=== PATIENT | female | born 1975 | race Caucasian/White ===

== ENCOUNTER 2019-01-16 15:10 | Outpatient (CLI) | payer OTHER, SELFPAY ==
[2019-01-16 15:47] LABS: Abs Immature Grans 0.01 k/cumm (0.0-0.09); Absolute Basophil Count 0.02 k/cumm (0.0-0.2); Absolute Eosinophil Count 0.08 k/cumm (0.0-0.7); Absolute Lymphocyte Count 2.25 k/cumm (1.2-3.4); Absolute Monocyte Count 0.46 k/cumm (0.11-0.7); Absolute Neutrophil Count 2.92 k/cumm (1.2-6.7); Basophils % 0.3; Eosinophils % 1.4; HCT 40.6 % (36.0-46.0); HGB 13.8 g/dL (12.0-15.5); Immature Grans % 0.2; Lymphocytes % 39.2; Mean Corpuscular Hemoglobin 30.2 pg (27.0-33.0); Mean Corpuscular Volume 88.8 fL (80-95); Mean Platelet Volume 9.9 fL (8.0-11.0); Neutrophils % 50.9; Platelet Count 217 x1000/uL (130-400); RBC 4.57 m/cumm (4.00-5.20); RBC Distribution Width 12.7 % (11.7-14.6); White Blood Cell Count 5.74 k/cumm (4.4-10.8)
[2019-01-16 17:18] LABS: ALT 15 U/L (12-78); AST 13 U/L (15-37); Albumin 3.9 g/dL (3.4-5.0); Alkaline Phosphatase 53 U/L (46-116); Anion Gap 9.7 mmol/L (3-11); BUN 16 mg/dL (7-18); Bilirubin, Total 0.2 mg/dL (0.2-1.0); C-Reactive Protein 0.07 mg/dL (0.0-0.3); CO2 27.3 mmol/L (21.0-32.0); CREATININE 0.78 mg/dL (0.55-1.02); Calcium 8.8 mg/dL (8.5-10.1); Chloride 102 mmol/L (98-107); Glucose 85 mg/dL (70-100); Potassium 3.5 mmol/L (3.5-5.1); Sodium 139 mmol/L (136-145); Total Protein 6.8 g/dL (6.4-8.2)
[2019-01-16 17:43] LABS: Ferritin 67 ng/mL (8-388)
[2019-01-20 15:22] LABS: 25-Hydroxy D Total 36 ng/mL; 25-Hydroxy D2 <4.0 ng/mL; 25-Hydroxy D3 36 ng/mL
== END 2019-01-16 15:30 ==
PROVIDERS: Visit Provider Internal Medicine Gastroenterology
DX: K51.20 Ulcerative (chronic) proctitis without complications (principal)
CPT/HCPCS: 36415; 80053; 82306; 82728; 85025; 86140

== ENCOUNTER 2019-01-20 12:19 | Outpatient (REF) | payer OTHER, SELFPAY | END 2019-01-20 12:39 | LOC: LBN 12:19 | PROVIDERS: Visit Provider Internal Medicine Gastroenterology | DX: K51.20 Ulcerative (chronic) proctitis without complications (principal) | CPT/HCPCS: 87338 ==

== ENCOUNTER 2019-02-14 08:36 | Outpatient (REF) | payer OTHER, SELFPAY ==
[2019-02-17 20:37] LABS: Calprotectin <15.6 mcg/g
== END 2019-02-14 08:56 ==
LOC: LBN 08:36
PROVIDERS: Visit Provider Internal Medicine Gastroenterology
DX: K51.20 Ulcerative (chronic) proctitis without complications (principal)
CPT/HCPCS: 83993

== ENCOUNTER 2021-11-03 09:08 | Outpatient (REF) | payer MEDICAID, SELFPAY ==
--- NOTE | 2021-11-03 08:35 | PAPFT_PTH ---
PATIENT: Agustina Luis LOC: [facility]#:[id number] AGE/SX: 45/F ROOM: RE11/03/[address]: Misa Brothers : 1975 BED: DIS: 11/03/2021 SPEC #: [id number] RECD: 11/03/21 17:03 STATUS: KIEL REJenn #: [id number] NEGIN: 11/03/21 08:[address]: Misa Brothers DEPT: [facility] Cytology RECD BY: Marisa Mae ENTERED: 11/03/21 17:03 SP TYPE: PAPFT OTHR DR: None Tissues: 1 - CX/ENDOCX FOR PAP SMEARS Procedures: PAP THIN PREP/[facility] Screening HPV DNA PROBE Comments: [id number]
--- OUTSIDE RECORDS SUMMARY | 2021-11-03 09:23 | XMS_ITS | CCD ---
:1975 Author Care Team Providers Name Role Phone UNLISTED REQUESTED, - Attending Physician Unavailable Vital Signs Unknown or Not Available. Allergies Unknown or Not Available. Procedures Unknown or Not Available. History of Immunizations Unknown or Not Available. Problems Unknown or Not Available. Results Unknown or Not Available. Active Medications Unknown or Not Available. Medications Administered During Visit Unknown or Not Available. Encounters Unknown or Not Available. Social History Smoking Status Code Start Date End Date Never smoker [id number] Patient Decision Aids Unknown or Not Available. Discharge Instructions You were admitted to [facility] on 10/21/2021 11:56 You were discharged from [facility] on 10/21/2021 11:56 Should you have any questions prior to d ischarge, please contact a member of your healthcare team. [facility] and have [facility] questions, please contact your primary care physician. Chief Complaint and Reason For Visit Unknown or Not Available. Function Status Unknown or Not Available. Plan of Care Unknown or Not Available. Referral/Transition of Care Unknown or Not Available.
== END 2021-11-03 09:09 | disposition home or self-care (01) ==
LOC: NCHCN 09:08
PROVIDERS: Visit Provider Family Medicine
DX: Z12.4 Encounter for screening for malignant neoplasm of cervix (principal); Z11.51 Encounter for screening for human papillomavirus (HPV)
CPT/HCPCS: 88142; 87624

== ENCOUNTER 2023-08-02 21:01 | Outpatient (REF) | payer MEDICAID, SELFPAY ==
[2023-08-02 21:11] LABS: Bilirubin Negative (Negative); Blood Negative (Negative); Clarity Clear (Clear); Glucose Negative (Negative); Ketones Negative (Negative); Leukocyte Esterase Trace (Negative); Nitrite Negative (Negative); Specific Gravity 1.015 (1.005-1.025); Urobilinogen 0.2 mg/dL (Up to 0.2)
[2023-08-02 21:14] LABS: Bacteria Few HPF (Negative); C & S Indicated? Yes; Casts Negative LPF (Negative); Crystals Negative HPF (Negative); Epithelial Cells Few HPF (Negative); Mucus Negative (Negative); RBC Negative HPF (0-2)
== END 2023-08-02 21:02 | disposition home or self-care (01) ==
LOC: LBN 21:01
PROVIDERS: Visit Provider Naturopath
DX: R31.9 Hematuria, unspecified (principal)
CPT/HCPCS: 81003; 81015; 87086

== ENCOUNTER 2024-01-30 17:39 | Outpatient (REF) | payer MEDICAID, SELFPAY ==
[2024-02-01 14:29] LABS: Helicobacter pylori Ag, Feces Positive (Negative)
== END 2024-01-30 17:40 | disposition home or self-care (01) ==
LOC: NCHCN 17:39
PROVIDERS: Visit Provider Internal Medicine
DX: R10.13 Epigastric pain (principal)
CPT/HCPCS: 87338

== ENCOUNTER 2024-03-13 14:46 | Outpatient (REF) | payer MEDICAID, SELFPAY ==
[2024-03-21 14:55] LABS: Helicobacter pylori Ag, Feces Positive (Negative)
== END 2024-03-13 14:47 | disposition home or self-care (01) ==
LOC: NCHCN 14:46
PROVIDERS: Visit Provider Family Medicine
DX: B96.81 Helicobacter pylori [H. pylori] as the cause of diseases classified elsewhere (principal)
CPT/HCPCS: 87338